=== PATIENT | male | born 1940 | race African-American/Black ===

== ENCOUNTER 2017-12-21 08:25 | Observation (INO) ==
[2017-12-21] MEDS ORDERED: NALOXONE 0.4 MG/ML VIAL IV STA (09:09)
[2017-12-21] MEDS ORDERED: NALOXONE 0.4 MG/ML VIAL ONE ×2 (09:36→11:05)
[2017-12-21 11:19] LABS: Basophils % 0.3 % (0.0-0.8); Eosinophils % 0.4 % (0.00-10.9); Hematocrit 39.6 VOL% (42.0-52.0); Hemoglobin 13.6 GM/DL (14.0-18.0); Immature Granulocytes % 0.5 %; Immature Granulocytes Absolute 0.05 #; Lymphocytes # 1.5 10*3/uL (1.4-4.0); Lymphocytes % 14.1 % (21.2-54.2); Mean Corpuscular HGB Conc 34.3 GM/DL (32-36); Mean Corpuscular Hemoglobin 31 PG (27-34); Mean Platelet Volume 9.3 FL (9.6-12.0); Neutrophils # 7.8 10*3/uL (1.4-7.4); Neutrophils % 74.7 % (38.7-73.9); Platelet Count 177 T/CUMM (130-400); Red Blood Count 4.45 MC/CUMM (3.8-5.5); Red Cell Distribution Width 14.1 % (9.3-17.3); White Blood Count 10.4 T/CUMM (4-12)
[2017-12-21 11:42] LABS: Alanine Aminotransferase 16 U/L (16-61); Albumin 3.4 G/DL (3.4-5.0); Alkaline Phosphatase 51 U/L (45-117); Aspartate Amino Transferase 20 U/L (0-37); Blood Urea Nitrogen 19 MG/DL (7-18); Glucose 109 MG/DL (74-106); Magnesium 2.2 MG/DL (1.8-2.4); Osmolality,Calculated 283.3 MOS/KG (273-304); Potassium 4.2 MMOL/L (3.5-5.1); Sodium 141 MMOL/L (136-145); Total Protein 6.7 G/DL (6.4-8.3); Troponin I Only < 0.015 NG/ML (0.00-0.045)
[2017-12-21 14:13] LABS: Apearance,Urine Slightly Hazy (Clear); Bacteria,Urine Occasional /HPF (Few); Bilirubin,Urine Negative (Negative); Blood, Urine Small mg/dL (Negative); Glucose,Urine (UA) Negative (Negative); Hyaline Casts,Urine 3 /LPF (0-3); Ketones,Urine Negative (Negative); Nitrite,Urine Negative (Negative); Protein,Urine 30 MG/DL; RBC,Urine 11 /HPF (0-4); Urine Color Yellow (Yellow); Urine Urobilinogen < 2.0 EU/DL (0.2-1.0); WBC,Urine 1 /HPF (0-6)
[2017-12-21 14:21] LABS: Barbiturates Screen,Urine Negative (Negative); Benzodiazepines Screen,Urine Negative (Negative); Cannabinoid Screen,Urine Negative (Negative); Opiate Screen,Urine Negative (Negative); Phencyclidine Screen,Urine Negative (Negative)
[2017-12-21] MEDS ORDERED: GLUCAGON 1 MG VIAL IM PRN (15:23)
[2017-12-21] MEDS: MEMANTINE 10 MG TABLET PO SCH (21:28)
[2017-12-21] MEDS: LISINOPRIL 5 MG TABLET PO SCH (21:28)
[2017-12-21] MEDS: DONEPEZIL 10 MG TABLET PO SCH (21:28)
[2017-12-21] MEDS: PRAVASTATIN 20 MG TABLET PO SCH (21:28)
[2017-12-21] MEDS: INSULIN LISPRO 100 UNIT/ML SUBCUT SCH ×2 (21:29)
[2017-12-21] MEDS: SODIUM CHLORIDE 0.9% 1,000 ML IV SCH (21:44)
[2017-12-22 05:08] LABS: Basophils % 0.3 % (0.0-0.8); Eosinophils # 0.1 10*3/uL (0.0-0.87); Eosinophils % 1.1 % (0.00-10.9); Hematocrit 35.9 VOL% (42.0-52.0); Hemoglobin 12.5 GM/DL (14.0-18.0); Immature Granulocytes % 0.1 %; Immature Granulocytes Absolute 0.01 #; Lymphocytes # 2.2 10*3/uL (1.4-4.0); Lymphocytes % 31.6 % (21.2-54.2); Mean Corpuscular HGB Conc 34.8 GM/DL (32-36); Mean Corpuscular Hemoglobin 31 PG (27-34); Mean Platelet Volume 9.5 FL (9.6-12.0); Monocytes # 0.7 10*3/uL (0.11-0.8); Monocytes % 9.9 % (1.7-12.7); Platelet Count 184 T/CUMM (130-400); Red Blood Count 3.99 MC/CUMM (3.8-5.5); Red Cell Distribution Width 14.4 % (9.3-17.3); White Blood Count 7.1 T/CUMM (4-12)
[2017-12-22 05:39] LABS: Calcium 8.3 MG/DL (8.5-10.1); Potassium 4.1 MMOL/L (3.5-5.1)
[2017-12-22] MEDS ORDERED: hydroCHLOROthiazide 12.5 MG CAPSULE PO SCH (09:00)
[2017-12-22] MEDS: INSULIN LISPRO 100 UNIT/ML SUBCUT SCH ×4 (10:17→21:01)
[2017-12-22] MEDS: INSULIN GLARGINE 100 UNIT/ML SUBCUT SCH (10:19)
[2017-12-22] MEDS: MEMANTINE 10 MG TABLET PO SCH ×2 (10:37→20:58)
[2017-12-22] MEDS: PANTOPRAZOLE 40 MG TABLET PO SCH (10:37)
[2017-12-22] MEDS: SODIUM CHLORIDE 0.9% 1,000 ML IV SCH (11:51)
[2017-12-22] MEDS: FLUTICASONE 50 MCG NASAL SPRAY 16 GM BOTTLE BOTH NARES SCH (14:41)
[2017-12-22] MEDS: metFORMIN 500 MG TABLET PO SCH (17:02)
[2017-12-22] MEDS: PRAVASTATIN 20 MG TABLET PO SCH (20:58)
[2017-12-22] MEDS: LISINOPRIL 5 MG TABLET PO SCH (20:58)
[2017-12-22] MEDS: DONEPEZIL 10 MG TABLET PO SCH (20:58)
[2017-12-23] MEDS: INSULIN LISPRO 100 UNIT/ML SUBCUT SCH ×2 (09:35→12:45)
[2017-12-23] MEDS: INSULIN GLARGINE 100 UNIT/ML SUBCUT SCH (09:37)
[2017-12-23] MEDS: metFORMIN 500 MG TABLET PO SCH (09:38)
[2017-12-23] MEDS: PANTOPRAZOLE 40 MG TABLET PO SCH (09:38)
[2017-12-23] MEDS: MEMANTINE 10 MG TABLET PO SCH (09:38)
[2017-12-23] MEDS: FLUTICASONE 50 MCG NASAL SPRAY 16 GM BOTTLE BOTH NARES SCH (09:39)
[2017-12-23 12:47] VITALS: BP 133/69
== END 2017-12-23 13:15 ==
LOC: EDBD → EDUNIT# → N.ED 08:25 → N.EDINP 08:25 → N.4E 19:00
PROVIDERS: ADMIT Internal Medicine; ATTEND Internal Medicine

== ENCOUNTER 2018-04-20 09:33 | Inpatient (IN) ==
[2018-04-20 11:21] LABS: Basophils % 0.5 % (0.0-0.8); Eosinophils # 0.1 10*3/uL (0.0-0.87); Hematocrit 38.8 VOL% (42.0-52.0); Hemoglobin 13.5 GM/DL (14.0-18.0); Immature Granulocytes % 0.3 %; Immature Granulocytes Absolute 0.02 #; Lymphocytes # 1.9 10*3/uL (1.4-4.0); Lymphocytes % 26.4 % (21.2-54.2); Mean Corpuscular HGB Conc 34.8 GM/DL (32-36); Mean Corpuscular Hemoglobin 30 PG (27-34); Mean Corpuscular Volume 86.2 FL (87-102); Monocytes # 0.6 10*3/uL (0.11-0.8); Monocytes % 7.6 % (1.7-12.7); Neutrophils # 4.7 10*3/uL (1.4-7.4); Neutrophils % 64.2 % (38.7-73.9); Platelet Count 224 T/CUMM (130-400); Red Cell Distribution Width 13.7 % (9.3-17.3); White Blood Count 7.3 T/CUMM (4-12)
[2018-04-20 11:30] LABS: PT Patient Result 10.7 SECS
[2018-04-20 11:43] LABS: Apearance,Urine CLEAR (Clear); Bilirubin,Urine Negative (Negative); Blood, Urine Negative (Negative); Glucose,Urine (UA) Negative (Negative); Hyaline Casts,Urine 6 /LPF (0-3); Ketones,Urine Negative (Negative); Mucus,Urine Occasional /LPF (Occasional); Nitrite,Urine Negative (Negative); Protein,Urine Negative; Urine Color Yellow (Yellow); Urine Specific Gravity 1.021 (1.001-1.035); WBC,Urine 1 /HPF (0-6)
[2018-04-20 11:50] LABS: Barbiturates Screen,Urine Negative (Negative); Benzodiazepines Screen,Urine Negative (Negative); Cannabinoid Screen,Urine Negative (Negative); Opiate Screen,Urine Negative (Negative); Phencyclidine Screen,Urine Negative (Negative)
[2018-04-20 11:54] LABS: Albumin 3.1 G/DL (3.4-5.0); Bilirubin,Total 0.4 MG/DL (0.2-1.0); Calcium 8.9 MG/DL (8.5-10.1); Osmolality,Calculated 279.5 MOS/KG (273-304); Potassium 4.4 MMOL/L (3.5-5.1); Total Protein 7.5 G/DL (6.4-8.3)
[2018-04-20] MEDS ORDERED: ALUMINUM/MAGNES/SIMETH MAX STR 30 ML UDCUP PO PRN (14:26)
[2018-04-20] MEDS ORDERED: MAGNESIUM HYDROXIDE SUSP 30 ML UDCUP PO PRN (14:26)
[2018-04-20] MEDS ORDERED: ACETAMINOPHEN 325 MG TABLET PO PRN (14:26)
[2018-04-20] MEDS ORDERED: DEXTROSE 50% 25 GM/50 ML VIAL IV PRN (14:32)
[2018-04-20] MEDS ORDERED: GLUCAGON 1 MG VIAL IM PRN (14:32)
[2018-04-20] MEDS ORDERED: ZIPRASIDONE 20 MG/1 ML VIAL IM PRN (15:59)
[2018-04-20] MEDS: SODIUM CHLORIDE 0.9% 1,000 ML IV SCH (16:16)
[2018-04-20] MEDS: INSULIN REGULAR 100 UNIT/ML SUBCUT SCH (16:45)
[2018-04-20] MEDS: metFORMIN 500 MG TABLET PO SCH (17:25)
[2018-04-20] MEDS: LISINOPRIL 5 MG TABLET PO SCH (21:54)
[2018-04-20] MEDS: MEMANTINE 10 MG TABLET PO SCH (21:54)
[2018-04-20] MEDS: PRAVASTATIN 20 MG TABLET PO SCH (21:54)
[2018-04-20] MEDS: DONEPEZIL 10 MG TABLET PO SCH (21:54)
[2018-04-21] MEDS: INSULIN REGULAR 100 UNIT/ML SUBCUT SCH ×3 (00:25→21:52)
[2018-04-21 06:42] LABS: Basophils % 0.7 % (0.0-0.8); Eosinophils # 0.1 10*3/uL (0.0-0.87); Hemoglobin 12.1 GM/DL (14.0-18.0); Immature Granulocytes % 0.3 %; Immature Granulocytes Absolute 0.02 #; Lymphocytes # 2.1 10*3/uL (1.4-4.0); Lymphocytes % 33.7 % (21.2-54.2); Mean Corpuscular HGB Conc 35.6 GM/DL (32-36); Mean Corpuscular Hemoglobin 30 PG (27-34); Mean Corpuscular Volume 84.4 FL (87-102); Monocytes # 0.6 10*3/uL (0.11-0.8); Monocytes % 9.4 % (1.7-12.7); Neutrophils # 3.4 10*3/uL (1.4-7.4); Neutrophils % 54.9 % (38.7-73.9); Platelet Count 213 T/CUMM (130-400); Red Blood Count 4.03 MC/CUMM (3.8-5.5); Red Cell Distribution Width 13.5 % (9.3-17.3); White Blood Count 6.1 T/CUMM (4-12)
[2018-04-21 06:57] LABS: Calcium 8.2 MG/DL (8.5-10.1); Osmolality,Calculated 282.3 MOS/KG (273-304); Potassium 3.9 MMOL/L (3.5-5.1)
[2018-04-21] MEDS ORDERED: FUROSEMIDE 20 MG TABLET PO SCH (09:00)
[2018-04-21] MEDS ORDERED: POTASSIUM CHLORIDE 10 MEQ TABLET PO SCH (09:00)
[2018-04-21] MEDS: metFORMIN 500 MG TABLET PO SCH ×2 (10:33→19:28)
[2018-04-21] MEDS: MEMANTINE 10 MG TABLET PO SCH ×2 (10:33→21:53)
[2018-04-21] MEDS: FLUTICASONE 50 MCG NASAL SPRAY 16 GM BOTTLE BOTH NARES SCH (10:33)
[2018-04-21] MEDS: LISINOPRIL 5 MG TABLET PO SCH (21:53)
[2018-04-21] MEDS: DONEPEZIL 10 MG TABLET PO SCH (21:53)
[2018-04-21] MEDS: PRAVASTATIN 20 MG TABLET PO SCH (21:53)
[2018-04-21] MEDS: SODIUM CHLORIDE 0.9% 1,000 ML IV SCH (21:56)
[2018-04-22] MEDS: INSULIN REGULAR 100 UNIT/ML SUBCUT SCH (08:32)
[2018-04-22] MEDS: metFORMIN 500 MG TABLET PO SCH (10:44)
[2018-04-22] MEDS: MEMANTINE 10 MG TABLET PO SCH (10:44)
[2018-04-22] MEDS: FLUTICASONE 50 MCG NASAL SPRAY 16 GM BOTTLE BOTH NARES SCH (10:44)
[2018-04-22] MEDS: SODIUM CHLORIDE 0.9% 1,000 ML IV SCH (10:45)
[2018-04-22 11:15] VITALS: BP 129/70
== END 2018-04-22 15:55 | DRG 74 ==
LOC: EDBD → EDUNIT# → N.ED 09:33 → N.EDINP 14:06 → N.5E 18:59